=== PATIENT | male | born 1945 | race Caucasian/White ===

== ENCOUNTER 2017-06-25 22:53 | Emergency (ER) | payer OTHER ==
[~2017-06-25] VITALS: Ht 175.3 cm; Wt 83.9 kg
[~2017-06-25 22:53] MED LIST: AMOCLA875 PO; CYCL10 PO; HARVONI 90-4001 EACH PO; HYDACE5 PO; HYDR1TAB94 PO; LEVFLO500 PO; METR500 PO; MULVITA PO; NAPR220 PO; NAPR500 PO; OXYACE5T PO; PROM25 PO; Percocet 5-3251 EACH PO; RXHYDACE PO; RXOXYACE PO; SULTRIDS PO; TAMS.4ER PO
== END 2017-06-26 00:20 | disposition home or self-care (01) ==
LOC: ER 22:53
DX: S40.011A Contusion of right shoulder, initial encounter (principal); W18.30XA Fall on same level, unspecified, initial encounter; F17.210 Nicotine dependence, cigarettes, uncomplicated
CPT/HCPCS: 29105; 73030; 99283

== ENCOUNTER 2017-09-01 10:38 | Emergency (ER) | payer OTHER ==
[~2017-09-01] VITALS: Ht 175.3 cm; Wt 83.9 kg
[2017-09-01] MEDS ORDERED: Norco 5-325 Ta1 EACH PO (12:39)
[2017-09-01] MEDS ORDERED: CYCL10 PO (12:39)
== END 2017-09-01 12:51 | disposition home or self-care (01) ==
LOC: ER 10:38
DX: M54.42 Lumbago with sciatica, left side (principal); F17.210 Nicotine dependence, cigarettes, uncomplicated; Z87.442 Personal history of urinary calculi
CPT/HCPCS: 73502; 96372; 99283; J1885

== ENCOUNTER 2018-02-14 10:44 | Emergency (ER) | payer OTHER ==
[~2018-02-14] VITALS: Ht 175.3 cm; Wt 82.1 kg
[~2018-02-14 10:44] MED LIST changes: +Norco 5-325 Ta1 EACH PO
[2018-02-14] MEDS ORDERED: TRAM50 PO (11:10)
[2018-02-14] MEDS ORDERED: Cyclobenzaprine5 MG PO (13:07)
[2018-02-14] MEDS ORDERED: KETO10 PO (13:07)
== END 2018-02-14 13:17 | disposition home or self-care (01) ==
LOC: ER 10:44
DX: S39.012A Strain of muscle, fascia and tendon of lower back, initial encounter (principal); Y99.0 Civilian activity done for income or pay; Z79.891 Long term (current) use of opiate analgesic; F17.210 Nicotine dependence, cigarettes, uncomplicated; X50.9XXA Other and unspecified overexertion or strenuous movements or postures, initial encounter
CPT/HCPCS: 96372; 99282-25; J1885

== ENCOUNTER 2018-04-30 08:58 | Day surgery (SDC) | payer OTHER ==
[~2018-04-30] VITALS: Ht 175.3 cm; Wt 84.5 kg
[~2018-04-30 08:58] MED LIST changes: +Cyclobenzaprine5 MG PO; +KETO10 PO; +TRAM50 PO
== END 2018-04-30 10:24 | disposition home or self-care (01) ==
LOC: ORSCSDS 08:58
PROVIDERS: Anesthesiology
PROC: 3E0R33Z Introduction of Anti-inflammatory into Spinal Canal, Percutaneous Approach (ICD-10-PCS; principal; 2018-04-30 10:00)
DX: M51.16 Intervertebral disc disorders with radiculopathy, lumbar region (principal); B19.20 Unspecified viral hepatitis C without hepatic coma; F17.210 Nicotine dependence, cigarettes, uncomplicated; Z79.899 Other long term (current) drug therapy
CPT/HCPCS: J1040

== ENCOUNTER 2018-12-09 21:25 | Emergency (ER) | payer OTHER ==
[~2018-12-09] VITALS: Ht 175.3 cm; Wt 86.2 kg
== END 2018-12-10 00:29 | disposition home or self-care (01) ==
LOC: ER 21:25
DX: S89.91XA Unspecified injury of right lower leg, initial encounter (principal); W22.8XXA Striking against or struck by other objects, initial encounter; F17.210 Nicotine dependence, cigarettes, uncomplicated
CPT/HCPCS: 29505; 73562-RT; 99283-25; A9270; A9270-GY

== ENCOUNTER 2022-04-30 07:54 | Day surgery (SDC) | payer OTHER ==
[~2022-04-30] VITALS: Ht 175.3 cm; Wt 88.5 kg
[2022-04-30] MEDS ORDERED: ATOR10 PO (08:07)
[2022-04-30] MEDS ORDERED: AMLO5 PO (08:07)
--- NOTE | 2022-04-30 08:16 | NUR ---
04/30/22 0816 Dillon Adame TETRACAINE GTT: [id number] CA SPONGE: [id number]
== END 2022-04-30 09:59 | disposition home or self-care (01) ==
LOC: ORSCSDS 07:54
PROVIDERS: Student in an Organized Health Care Education/Training Program
PROC: 08RK3JZ Replacement of Left Lens with Synthetic Substitute, Percutaneous Approach (ICD-10-PCS; principal; 2022-04-30 09:00)
DX: H25.12 Age-related nuclear cataract, left eye (principal); H21.81 Floppy iris syndrome; I10 Essential (primary) hypertension; F17.210 Nicotine dependence, cigarettes, uncomplicated; E78.00 Pure hypercholesterolemia, unspecified; Z79.899 Other long term (current) drug therapy
CPT/HCPCS: J2001; J2250; J3010; J7030; J7040; V2632

== ENCOUNTER → 2022-09-04 | Outpatient (CLI) | payer OTHER ==
[~2022-09-04] MED LIST changes: +AMLO5 PO; +ATOR10 PO
[2022-09-06 08:11] LABS: Adenovirus F 40/41 Not Detected (NOT DETECT); Astrovirus Not Detected (NOT DETECT); Campylobacter Sp Not Detected (NOT DETECT); Cryptosporidium Not Detected (NOT DETECT); Cyclospora Cayetanensis Not Detected (NOT DETECT); E. Coli O157 Not Detected (NOT DETECT); Entamoeba Histolytica Not Detected (NOT DETECT); Enteroaggregative E. coli-EAEC Not Detected (NOT DETECT); Enteropathogenic E. coli-EPEC Not Detected (NOT DETECT); Enterotoxigenic E. coli-ETEC Not Detected (NOT DETECT); Giardia Lamblia Not Detected (NOT DETECT); Norovirus GI/GII Not Detected (NOT DETECT); Plesiomonas Shigelloides Not Detected (NOT DETECT); Rotavirus A Not Detected (NOT DETECT); Salmonella Sp Not Detected (NOT DETECT); Sapovirus Not Detected (NOT DETECT); Shiga Toxin-prod E. coli-STEC Not Detected (NOT DETECT); Shigella/Enteroin E. coli-EIEC Not Detected (NOT DETECT); Vibrio Cholerae Not Detected (NOT DETECT); Vibrio Sp Not Detected (NOT DETECT); Yersinia Enterocolitica Not Detected (NOT DETECT)
== END ==
LOC: LAB SHORT 08:00 → LAB 08:00
PROVIDERS: Student in an Organized Health Care Education/Training Program
DX: R15.9 Full incontinence of feces (principal)
CPT/HCPCS: 87177; 87209; 87338; 87507

== ENCOUNTER → 2022-10-01 | Outpatient (CLI) | payer OTHER ==
[2022-10-01 11:02] LABS: Alanine Aminotransfer (ALT/SGP 28 U/L (12-78); Albumin, Blood 4.2 g/dL (3.4-5.0); Albumin/Globulin Ratio 1.3 (0.8-1.8); Alk Phos 57 U/L (50-136); Anion Gap 2 mmol/L (6-16); Aspartate Aminotrans (AST/SGOT 18 U/L (12-37); Bilirubin, Total 0.7 mg/dL (0.1-1.0); Blood Urea Nitrogen 12 mg/dL (8-24); CHOL/HDL RATIO 1.6; CO2, Blood 27 mmol/L (21-32); Calcium, Blood 9.1 mg/dL (8.5-10.1); Chloride, Blood 110 mmol/L (98-108); Cholesterol 128 mg/dL (50-200); Creatinine, Blood 0.92 mg/dL (0.60-1.20); Globulin, Blood 3.2 g/dL (2.2-4.0); Glomerular Filtration Rate 87 (60-); Glucose, Blood 109 mg/dL (70-99); HDL Cholesterol 78 mg/dL (>39); LDL/HDL RATIO 0.5; Low Density Lipoprotein Chol 36 mg/dL (0-110); Sodium, Blood 139 mmol/L (136-145); Total Protein, Blood 7.4 g/dL (6.4-8.2); Triglycerides 68 mg/dL (30-160); Very Low Density Lipoprot Chol 13 mg/dL (6-32)
== END | disposition home or self-care (01) ==
LOC: LAB 08:44 → LAB SHORT 08:44
PROVIDERS: Family Medicine
DX: E78.5 Hyperlipidemia, unspecified (principal)
CPT/HCPCS: 80053; 80061

== ENCOUNTER 2023-01-13 09:34 | Emergency (ER) | payer OTHER ==
[~2023-01-13] VITALS: Ht 175.3 cm; Wt 86.2 kg
[2023-01-13 10:11] VITALS: BP 166/87
== END 2023-01-13 11:08 | disposition home or self-care (01) ==
LOC: ER 09:34
DX: R07.81 Pleurodynia (principal); W01.0XXA Fall on same level from slipping, tripping and stumbling without subsequent striking against object, initial encounter; F17.210 Nicotine dependence, cigarettes, uncomplicated; Z79.899 Other long term (current) drug therapy
CPT/HCPCS: 71101; 99283-25; A9270

== ENCOUNTER 2023-02-09 15:32 | Emergency (ER) | payer OTHER ==
[~2023-02-09] VITALS: Ht 172.7 cm; Wt 83.9 kg
[2023-02-09 15:56] VITALS: BP 142/77
[2023-02-09] MEDS ORDERED: Robaxin750 MG PO (16:44)
== END 2023-02-09 16:55 | disposition home or self-care (01) ==
LOC: ER 15:32
DX: M54.9 Dorsalgia, unspecified (principal); K42.9 Umbilical hernia without obstruction or gangrene; F17.210 Nicotine dependence, cigarettes, uncomplicated; I10 Essential (primary) hypertension; E78.5 Hyperlipidemia, unspecified; Z79.899 Other long term (current) drug therapy
CPT/HCPCS: 96372; 99283-25; J1885

== ENCOUNTER 2024-05-11 06:02 | Inpatient (IN) | payer OTHER ==
[2024-05-11] VITALS (18 sets, daily range): BP systolic 125–159; BP diastolic 57–82
[~2024-05-11] VITALS: Ht 175.3 cm; Wt 89.9 kg
[~2024-05-11 06:02] MED LIST changes: -ATOR10 PO; +ATOR20 PO; +DICLOFENAC SOD100 GM TP; +Inderal60 MG PO; +Robaxin750 MG PO
[2024-05-11] MEDS ORDERED: Acetaminophen 500 MG Tab PO SCH (06:35)
[2024-05-11] MEDS ORDERED: CeFAZolin Sodium 2,000 MG in NS 100 ML IV SCH (06:35)
[2024-05-11] MEDS ORDERED: Heparin Sodium,Porcine 5,000 UNIT/0.5 ML SDV SC ONE (06:35)
[2024-05-11] MEDS ORDERED: Lactated Ringer's 1,000 ML IV SCH (06:35)
[2024-05-11] MEDS ORDERED: Bupivacaine 0.5% HCl 5 MG/ML 30MLVIAL ONE (06:53)
[2024-05-11] MEDS ORDERED: CeFAZolin Sodium 2,000 MG VIAL ONE (06:59)
[2024-05-11] MEDS ORDERED: propofoL 20 ML IV ONE (07:20)
[2024-05-11] MEDS ORDERED: Rocuronium Bromide 10 MG/ML 5ML Injection IV ONE ×3 (07:20→08:41)
[2024-05-11] MEDS ORDERED: FentaNYL Citrate 50 MCG/ML 2 ML Injection ONE ×2 (07:21→11:49)
[2024-05-11] MEDS ORDERED: Lidocaine HCl 2% 20 ML MDV ONE (07:21)
--- NOTE | 2024-05-11 07:25 | NUR ---
Ambulatory in Day Surgery WITH STEADY GAIT. History, Chart, Medications and Allergies reviewed before start of procedure. Pre-Op teaching done. Pt verbalizes understanding. Patient States Post-Procedure ride home has been arranged WITH SPOUSE ELYSSA. SPOUSE AT BEDSIDE DURING PRE OP ADMISSION. GLASSES GIVEN TO SPOUSE. PT REPORTS LEAVING HEARING AIDS AT HOME. ALL OTHER BELONGINGS PLACED UNDER GURN IN PT BELONGING BAG.
[2024-05-11] MEDS ORDERED: Phenylephrine HCl 100 MCG/ML-NS 10MLSYR (1MG/10ML) ONE (07:46)
[2024-05-11] MEDS ORDERED: FentaNYL Citrate 50 MCG/ML 2 ML Injection IV PRN ×2 (08:20)
[2024-05-11] MEDS ORDERED: HYDROmorphone HCl/Pf 1MG SYR IV PRN ×3 (08:20→12:00)
[2024-05-11] MEDS ORDERED: Labetalol HCL 5 MG/ML 4ML Injection (Single Dose) IV PRN (08:20)
[2024-05-11] MEDS ORDERED: Ondansetron HCl 2 MG / ML 2ML Vial IV PRN ×2 (08:25→12:00)
[2024-05-11] MEDS ORDERED: Prochlorperazine Edisylate 10 mg Vial IV PRN (08:25)
[2024-05-11] MEDS ORDERED: HYDROmorphone HCl/Pf 1MG SYR ONE ×2 (09:23→12:08)
[2024-05-11] MEDS ORDERED: Sugammadex Sodium 200 MG/2ML SDV (100 MG/ML) ONE (11:03)
[2024-05-11] MEDS ORDERED: Naproxen 500 MG Tab PO PRN (12:00)
[2024-05-11] MEDS ORDERED: Acetaminophen 325 MG TABLET PO PRN (12:00)
[2024-05-11] MEDS ORDERED: OxyCODONE HCL 5 MG TAB PO PRN (12:00)
[2024-05-11] MEDS ORDERED: FLU VACC TS2024-25(6MOS UP)/PF 45 MCG/0.5 ML SYRINGE IM SCH (12:05)
--- NOTE | 2024-05-11 13:17 | NUR ---
PT ARRIVED TO RM 210 AT 1240. PT ALERT/ORIENTED UPON ARRIVAL. FAMILY PRESENT AT THE BEDSIDE. PT EDUCATED THAT THE PLAN IS TO DISCHARGE HOME TODAY, PT EXPRESSED CONCERNS ABOUT PLAN FOR DISCHARGE HOME TODAY. CALL LIGHT PLACED WITHIN REACH.
--- NOTE | 2024-05-11 13:54 | NUR ---
PAIN PT REPORTS PAIN LOCATED IN R ABD AND BACK IS 8/10 AFTER PO PAIN MEDICATION WAS GIVEN. UPON ENTERING THE ROOM PT WAS RESTING QUIETLY WITH EYES CLOSED, RESP RATE AND EFFORT EVEN AND UNLABORED; NO WINCING, GRIMACING OR MOANING WHILE RESTING. PT REPORTS HE HAS BEEN ABLE TO DOZE OFF. PT'S 02 SATURATION DROPPED TO 88% WHILE ASLEEP, PT PLACED ON 2L O2 VIA NC AND EDUCATED TO USE INCENTIVE SPIROMETER. PT AND HIS WERE EDUCATED ABOUT RISKS VS BENEFITS OF PAIN MEDICATION, SIDE EFFECTS, AND REALISTIC EXPECTATIONS FOR PAIN MANAGEMENT. PT AND HIS SPOUSE VERBALIZED UNDERSTANDING.
--- NOTE | 2024-05-11 19:32 | NUR ---
SHIFT SUMMARY PT IS POD#[address] FROM [address] REPAIR [address]. LEBRON. PT IS TOLERATING PO. PAIN MANAGED WITH PO PAIN MEDICATION. PT IS ON 1L O2 VIA NC, PT REPORTS HE DOES NOT USE O2 AT BASELINE BUT MAY HAVE SLEEP APNEA. PT EDUCATED TO USE INCENTIVE SPIROMETER, HE DEMONSTRATED USE. PT USES THE CALL LIGHT APPROPRIATELY. BEDSIDE REPORT GIVEN TO BETY GARCIA.
[2024-05-12 03:34] VITALS: BP 134/66
--- NOTE | 2024-05-12 03:49 | NUR ---
SHIFT SUMMARY PT ALERT ORIENTED X 4 ABLE TO VERBALIZE NEEDS HAS GOTTEN UP A COUPLE OF TIMES AND AMBULATED TO THE BATHROOM AND IN THE HALLWAY. S/P DAY #1 OF INCISIONAL HERNIA REPAIR. HE HAS 4 LAP SITES WITH WOOD GLUES. NO DRAINAGE TO AREA. C/O ABD PAIN MEDICATED WITH OXY AND NAPROXEN WITH GOOD RELIEF. HES BEEN URINATING WELL. VSS ON RA SATTING AT 95%. HE HAS HIS ABDOMINAL BINDER ON. NO C/O NAUSEA OR EMESIS. HE SLEPT WELL LAST NIGHT. HES DUE TO BE DISCHARGED TO HOME TODAY. RESTING IN BED AT THIS TIME WITH CALL LIGHT IN REACH
[2024-05-12 07:14] VITALS: BP 132/75
[2024-05-12] MEDS ORDERED: OXAYDO5 M1 PO (08:50)
[2024-05-12] MEDS ORDERED: NAPR500 PO (08:50)
[2024-05-12] MEDS ORDERED: Atorvastatin 10 MG Tab PO SCH (09:00)
[2024-05-12] MEDS ORDERED: AmLODIPine Besylate 5 MG Tab PO SCH (09:00)
[2024-05-12] MEDS ORDERED: Enoxaparin 40 MG/0.4 ML SYR SC SCH (09:00)
[2024-05-12] MEDS ORDERED: Tamsulosin HCl 0.4 MG Cap PO SCH (09:00)
[2024-05-12] MEDS ORDERED: Propranolol HCL 60 MG CAPCR PO SCH (09:00)
--- NOTE | 2024-05-12 10:05 | NUR ---
RN NOTE MR LYNN IS ORIENTATED X4. ABDOMEN DISTENDED, LAPROSCOPIC SURGERY SITES WITH GLUE C,D,I. C/O PAIN 8/10 THIS AM, HELPED WITH MEDICATIONS AND HEAT. PT VERBALISED UNDERSTANDING OF WRITTEN AND VERBAL DISCHARGE INSTRUCTIONS. AWAITING FAMILY TO ARRIVE FOR DISCHARGE RIDE. EDUCATED ON POST OP CARE WITH VERBALISED UNDERSTANDING.
--- NOTE | 2024-05-12 11:30 | NUR ---
DISCHARGE FROM SURGICAL UNIT AT 1112HRS. ASSISTED OUT VIA W/C WITH MOTEL OPERATOR/. PT DENIES ANY NEW QUESTIONS OR CONCERNS PRIOR TO DISCHARGE.
== END 2024-05-12 11:13 | disposition home or self-care (01) | DRG 355 ==
LOC: MEDS 06:02 → SURS 06:02 → PRE IP 07:30 → SURS 12:28
PROVIDERS: ADMIT Surgery
PROC: 8E0W4CZ Robotic Assisted Procedure of Trunk Region, Percutaneous Endoscopic Approach (ICD-10-PCS; 2024-05-11)
PROC: 0WUF4JZ Supplement Abdominal Wall with Synthetic Substitute, Percutaneous Endoscopic Approach (ICD-10-PCS; principal; 2024-05-11 07:30)
DX: K43.2 Incisional hernia without obstruction or gangrene (principal); M62.08 Separation of muscle (nontraumatic), other site; E78.5 Hyperlipidemia, unspecified; F17.210 Nicotine dependence, cigarettes, uncomplicated; I10 Essential (primary) hypertension; Z85.46 Personal history of malignant neoplasm of prostate; Z98.890 Other specified postprocedural states; Z90.49 Acquired absence of other specified parts of digestive tract; Z93.3 Colostomy status; Z98.42 Cataract extraction status, left eye; Z79.899 Other long term (current) drug therapy
CPT/HCPCS: A9270; C1781; J0690; J1171; J1644; J1650; J2371; J2704; J3010; J7120